=== PATIENT | female | born 1985 | race African-American/Black ===

== ENCOUNTER → 2016-07-10 | Outpatient (CLI) | payer MEDICAID ==
[~2016-07-10] MED LIST: Z.0.NO CURRENT MEDS
== END ==
LOC: HPND 08:21
PROVIDERS: ATTEND Obstetrics & Gynecology
DX: O35.1XX0 Maternal care for (suspected) chromosomal abnormality in fetus, not applicable or unspecified (principal)
CPT/HCPCS: 76811